=== PATIENT | female | born 1980 | race Caucasian/White ===

== ENCOUNTER 2018-11-15 19:23 | Emergency (ER) | payer BC, MEDICAID ==
[~2018-11-15] VITALS: Ht 154.9 cm; Wt 118.6 kg
[2018-11-15 19:30] VITALS: BP 129/74
--- NOTE | 2018-11-15 19:38 | NUR ---
PT IS 22.5 WEEKS OF CALLED L&D PT WAS TRANSFERRED TO L&D VIA W/C
[2018-11-15] MEDS ORDERED: PREN-4 PO (22:09)
[2018-11-15] MEDS ORDERED: INSU100V34 SC (22:09)
[2018-11-15] MEDS ORDERED: ASPI-515 PO (22:09)
[2018-11-16] MEDS ORDERED: INSU100V8 SQ (07:44)
== END 2018-11-15 19:41 | disposition left against medical advice (07) ==
LOC: ED 19:35
DX: M79.89 Other specified soft tissue disorders (principal); Z53.21 Procedure and treatment not carried out due to patient leaving prior to being seen by health care provider

== ENCOUNTER 2018-11-15 19:48 | Outpatient (CLI) | payer BC, MEDICAID ==
[2018-11-15] MEDS ORDERED: ACETAMINOPHEN 325 MG TABLET ONE (20:23)
[2018-11-15] MEDS ORDERED: ACETAMINOPHEN 325 MG TABLET PO PRN (20:30)
[2018-11-15] MEDS ORDERED: PLEASE ENTER ALLERGIES MC SCH (21:00)
[2018-11-15] MEDS ORDERED: PLEASE ENTER HEIGHT AND WEIGHT MC SCH (21:00)
[2018-11-15] MEDS ORDERED: ASPI-515 PO (22:09)
[2018-11-15] MEDS ORDERED: PREN-4 PO (22:09)
[2018-11-15] MEDS ORDERED: INSU100V34 SC (22:09)
[2018-11-16] MEDS ORDERED: INSU100V8 SQ (07:44)
[2018-11-19] MEDS ORDERED: CEPH-368 PO (12:19)
== END 2018-11-15 20:35 | disposition home or self-care (01) ==
LOC: LDOP 19:48
PROVIDERS: ATTEND Obstetrics & Gynecology
DX: O26.892 Other specified pregnancy related conditions, second trimester (principal); M79.605 Pain in left leg; R50.9 Fever, unspecified; Z3A.23 23 weeks gestation of pregnancy
CPT/HCPCS: 59025; 82962; 99211; G0463

== ENCOUNTER 2019-02-25 03:14 | Inpatient (IN) | payer MEDICAID ==
[~2019-02-25] VITALS: Ht 154.9 cm; Wt 123.6 kg
[2019-02-27 08:15] VITALS: BP 120/76
== END 2019-02-27 17:15 | disposition home or self-care (01) | DRG 807 ==
LOC: EDIP 21:39 → LDIP 21:46 → 2NE 02-26 15:40 → 2NW 02-26 16:13
PROVIDERS: ADMIT Obstetrics & Gynecology; ATTEND Obstetrics & Gynecology
PROC: 10E0XZZ Delivery of Products of Conception, External Approach (ICD-10-PCS; principal; 2019-02-27)
PROC: 0KQM0ZZ Repair Perineum Muscle, Open Approach (ICD-10-PCS; 2019-02-27)
DX: O24.32 Unspecified pre-existing diabetes mellitus in childbirth (principal); Z37.0 Single live birth; O99.214 Obesity complicating childbirth; E66.01 Morbid (severe) obesity due to excess calories; Z3A.38 38 weeks gestation of pregnancy; O70.1 Second degree perineal laceration during delivery; Z88.8 Allergy status to other drugs, medicaments and biological substances
CPT/HCPCS: 36415; 80053; 82248; 82962; 84550; 85025; 86850; 86900; 90715; G0378; J1815; J2590; J7120

== ENCOUNTER 2019-05-04 09:17 | Outpatient (CLI) | payer MEDICAID ==
[~2019-05-04 09:17] MED LIST: ASPI-515 PO; CEPH-368 PO; IBUP200T49 PO; INSU100V34 SC; INSU100V8 SQ; PREN-4 PO
[2019-05-04] MEDS ORDERED: None per pt (10:03)
[2019-05-04 10:25] LABS: BASOPHILS # (AUTO) 0.04 x10^3/uL (0-0.1); BASOPHILS % (AUTO) 1 % (0-1); EOSINOPHILS # (AUTO) 0.17 x10^3/uL (0-0.4); EOSINOPHILS % (AUTO) 2 % (1-7); LYMPHOCYTES % (AUTO) 28 % (22-44); MD NO; MEAN CORPUSCULAR HEMOGLOBIN 26.6 pg (27.0-34.8); MEAN CORPUSCULAR HGB CONC 32.4 g/dL (32.4-35.8); MEAN CORPUSCULAR VOLUME 82.1 fL (80-100); MEAN PLATELET VOLUME 7.1 fL (7.4-10.4); MONOCYTES # (AUTO) 0.63 x10^3/uL (0.2-0.8); MONOCYTES % (AUTO) 8 % (2-9); NEUTROPHILS # (AUTO) 4.87 x10^3/uL (1.8-6.8); NEUTROPHILS % (AUTO) 62 % (42-75); PLATELET COUNT 349 x10^3/uL (130-400); RED BLOOD COUNT 5.19 x10^6/uL (3.82-5.3); RED CELL DISTRIBUTION WIDTH 15.4 % (9.6-15.2)
[2019-05-04 10:30] LABS: CULTURE INDICATED? YES; MICROSCOPIC INDICATED
[2019-05-04 10:37] LABS: ALANINE AMINOTRANSFERASE 28 U/L (12-78); ALBUMIN 3.9 g/dL (3.4-5.0); ANION GAP 7 mmol/L (5-15); CALCIUM 9.1 mg/dL (8.5-10.1); CHLORIDE 105 mmol/L (98-107); CREATININE 0.83 mg/dL (0.55-1.02)
[2019-05-04 10:41] LABS: ALKALINE PHOSPHATASE 109 U/L (45-117); BILIRUBIN,TOTAL 0.4 mg/dL (0.2-1.0); TOTAL PROTEIN 7.9 g/dL (6.4-8.2)
== END 2019-05-04 23:59 | disposition home or self-care (01) ==
LOC: STAR 09:17
PROVIDERS: ATTEND Obstetrics & Gynecology
DX: Z01.818 Encounter for other preprocedural examination (principal); Z98.51 Tubal ligation status
CPT/HCPCS: 36415; 80053; 81001; 84702; 85025; 87086

== ENCOUNTER 2019-05-18 05:27 | Day surgery (SDC) | payer MEDICAID ==
[~2019-05-18] VITALS: Ht 154.9 cm; Wt 108.5 kg
[~2019-05-18 05:27] MED LIST changes: +None per pt
[2019-05-18] MEDS ORDERED: LACTATED RINGERS 1,000 ML IV SCH (06:04)
[2019-05-18 06:16] VITALS: BP 123/83
[2019-05-18 06:40] LABS: HCG UR SG 1.027 (1.003-1.030)
[2019-05-18] MEDS ORDERED: EPINEPHRINE 1 MG/ML, 1ML ONE (07:01)
[2019-05-18] MEDS ORDERED: BUPIVACAINE/PF 0.25% ONE (07:01)
[2019-05-18] MEDS ORDERED: CLINDAMYCIN 150 MG/ML, 6ML ONE (07:06)
[2019-05-18] MEDS ORDERED: MIDAZOLAM 1 MG/ML, 2ML ONE (07:25)
[2019-05-18] MEDS ORDERED: FENTANYL PF 250 MCG/5ML ONE (07:25)
[2019-05-18] MEDS ORDERED: OXYcodone 5 MG/5 ML ORAL.SOL UDC PO PRN ×2 (07:30→09:30)
[2019-05-18] MEDS ORDERED: LABETALOL 5MG/ML, 20ML IV PRN (07:30)
[2019-05-18] MEDS ORDERED: MEPERIDINE/PF 25MG/ML,1ML IVPush PRN (07:30)
[2019-05-18] MEDS ORDERED: ACETAMINOPHEN 500 MG TABLET PO ONE (07:30)
[2019-05-18] MEDS ORDERED: hydrALAzine 20 MG/ML, 1ML IV PRN (07:30)
[2019-05-18] MEDS ORDERED: GABAPENTIN 300 MG CAPSULE PO ONE (07:30)
[2019-05-18] MEDS ORDERED: FENTANYL PF 100 MCG/2ML IV PRN (07:30)
[2019-05-18] MEDS ORDERED: PROMETHAZINE 25 MG/ML, 1ML IV PRN (07:30)
[2019-05-18] MEDS ORDERED: HALOPERIDOL 5 MG/ML IV PRN (07:30)
[2019-05-18] MEDS ORDERED: HYDROmorphone 2 MG/ML, 1ML IVPush PRN ×2 (07:30→09:30)
[2019-05-18] MEDS ORDERED: KETOROLAC 30 MG/1 ML ONE (07:42)
[2019-05-18] MEDS ORDERED: BUPIVACAINE/PF-EPI 0.25% 1:200K INFIL ONE (08:08)
[2019-05-18] MEDS ORDERED: DEXAMETHASONE 4 MG/ML, 1ML ONE (08:37)
[2019-05-18] MEDS ORDERED: SUCCINYLCHOLINE 20 MG/ML, 10ML ONE (08:37)
[2019-05-18] MEDS ORDERED: ROCURONIUM 10MG/ML,5ML ONE (08:37)
[2019-05-18] MEDS ORDERED: PROPOFOL 10 MG/ML, 20ML ONE (08:37)
[2019-05-18] MEDS ORDERED: GLYCOPYRROLATE 0.2MG/1ML, 5ML ONE (08:37)
[2019-05-18] MEDS ORDERED: CEFAZOLIN 1,000 MG ONE (08:37)
[2019-05-18] MEDS ORDERED: NEOSTIGMINE 1 MG/ML, 10ML ONE (08:37)
[2019-05-18] MEDS ORDERED: ONDANSETRON 2MG/ML, 2ML ONE (08:37)
[2019-05-18] MEDS ORDERED: FENTANYL PF 100 MCG/2ML ONE (09:12)
[2019-05-18] MEDS ORDERED: OXYcodone 5 MG/5 ML ORAL.SOL UDC ONE (09:13)
== END 2019-05-18 13:25 | disposition home or self-care (01) ==
LOC: OUT 05:27
PROVIDERS: ATTEND Obstetrics & Gynecology
DX: Z30.2 Encounter for sterilization (principal); E66.01 Morbid (severe) obesity due to excess calories; Z88.8 Allergy status to other drugs, medicaments and biological substances; Z80.3 Family history of malignant neoplasm of breast
CPT/HCPCS: 36415; 58670; 81025; 86850; 86900; 88302; J0171; J0330; J0690; J1100; J1885; J2250; J2405; J2704; J2710; J3010; J3490; J7120